=== PATIENT | male | born 1935 ===

== ENCOUNTER 2018-02-04 09:47 | Emergency (ER) | payer MEDICARE ==
[2018-02-04 10:24] VITALS: BP 114/72
--- NOTE | 2018-02-04 10:42 | UC ---
Respiratory Complaint HPI - HPI Summary HPI Summary: Rimma Travis, scribed for attending Nicola Blum MD. Pt is an 82 y/o M who presents to [facility] c/o sore throat and cough for 3-4 days. Reports that cough is occasionally productive and phlegm "tastes horribly " though he is unsure of what color it is. States that he is having difficulty sleeping secondary to cough. On triage, associated pain is ranked 6/10. Has been taking Advil which helps slightly. Denies fever. Reports that symptoms are primarily in the head, not in the chest. - History of Current Complaint Chief Complaint: UCRespiratory Stated Complaint: SORE THROAT Time Seen by Provider: 02/04/18 10:33 Hx Obtained From: Patient Onset/Duration: Lasting Days - 3-4 days, Still Present Severity Currently: Moderate Pain Intensity: 6 Pain Scale Used: 0-10 Numeric Character: Cough: Productive Aggravating Factors: Nothing Alleviating Factors: OTC Meds - Advil Associated Signs And Symptoms: Positive: Nasal Congestion. Negative: Fever - Allergies/Home Medications Allergies/Adverse Reactions: Allergies Allergy/AdvReac Type Severity Reaction Status Date / Time No Known Allergies Allergy Verified 02/04/18 10:24 Home Medications: Home Medications Aspirin 81 mg CHEW TAB* 81 mg PO DAILY 02/04/18 [History Confirmed 02/04/18] Clopidogrel TAB* [Plavix TAB*] 75 mg PO DAILY 02/04/18 [History Confirmed ] Olmesartan Medoxomil [Benicar] 5 mg PO DAILY 02/04/18 [History Confirmed ] Rosuvastatin Calcium [Crestor] 10 mg PO DAILY 02/04/18 [History Confirmed ] PMH/Surg Hx/FS Hx/Imm Hx - Additional Past Medical History Additional PMH: PMHx: HTN NEGATUVE PMHx: DM - Surgical History Surgical History: Yes Surgery Procedure, Year, and Place: angiograms - Family History Known Family History: Negative: Diabetes - Social History Alcohol Use: Rare Substance Use Type: None Smoking Status (MU): Never Smoked Tobacco Review of Systems Constitutional: Negative Skin: Negative Eyes: Negative ENT: Sore Throat, Sinus Congestion Respiratory: Cough Cardiovascular: Negative Gastrointestinal: Negative Genitourinary: Negative Motor: Negative Neurovascular: Negative Musculoskeletal: Negative Neurological: Negative Psychological: Negative All Other Systems Reviewed And Are Negative: Yes - Comments Additional Review of Systems Comments: NEGATIVE: Fever Physical Exam - Summary Physical Exam Summary: Appearance: Well-appearing, Well-nourished Skin: Warm Eyes: Normal ENT: Pharyngeal erhythema without exudate, negative anterior cervical lymphadenopathy, TM clear without effusion, negative nasal discharge Neck: Supple, nontender Respiratory: Clear to auscultation Cardiovascular: Regular rate, regular rhythm. Normal S1, S2. Musculoskeletal: Normal, Strength/ROM Intact Neurological: Normal, A&Ox3 Psychiatric: Normal General: No acute distress Triage Information Reviewed: Yes Vital Signs: Initial Vital Signs Temp 98.7 F 02/04/18 10:20 Pulse 89 02/04/18 10:20 Resp 18 02/04/18 10:20 BP 114/72 02/04/18 10:20 Pulse Ox 98 02/04/18 10:20 Vital Signs Reviewed: Yes UC Diagnostic Evaluation - Laboratory O2 Sat by Pulse Oximetry: 98 Respiratory Course/Dx - Differential Dx/Diagnosis Provider Diagnoses: Pharyngitis, URI Discharge - Sign-Out/Discharge Documenting (check all that apply): Patient Departure - Discharge - Discharge Plan Condition: Stable Disposition: HOME Prescriptions: Benzonatate CAP* [Tessalon 100 MG CAP*] 100 mg PO TID 7 Days #21 cap Patient Education Materials: Upper Respiratory Infection (ED) Referrals: No Primary Care Phys,NOPCP [Primary Care Provider] - - Billing Disposition and Condition Condition: STABLE Disposition: Home
== END 2018-02-04 11:38 | disposition home or self-care (01) ==
LOC: UCEAST 09:47
DX: J02.9 Acute pharyngitis, unspecified (principal); J06.9 Acute upper respiratory infection, unspecified; I10 Essential (primary) hypertension; Z79.82 Long term (current) use of aspirin
CPT/HCPCS: 87651; 99201; G0463